=== PATIENT | female | born 1935 | race Caucasian/White ===

== ENCOUNTER → 2017-03-07 | Outpatient (CLI) | payer MEDICARE, MEDICAID ==
[~2017-03-07] MED LIST: PANT40TA2 PO; PROP1TAB29 PO
[2017-03-07 15:08] LABS: CALCIUM LEVEL 8.7 MG/DL (8.8-10.2); CREATININE FOR GFR 1.71 MG/DL (0.55-1.02); GLOMERULAR FILTRATION RATE 30.4 (>32); POTASSIUM SERUM 4.6 MEQ/L (3.5-5.1)
--- NOTE | 2017-03-10 00:39 | ECGEPIP ---
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
== END ==
LOC: M LAB 13:43
PROVIDERS: ATTEND Ophthalmology
DX: H25.12 Age-related nuclear cataract, left eye (principal)

== ENCOUNTER → 2017-03-20 | Day surgery (SDC) | payer MEDICARE, MEDICAID ==
[~2017-03-20] VITALS: Ht 152.4 cm; Wt 78.5 kg
[~2017-03-20] MED LIST changes: +CYCLOPENTOLATE 2% OPHTH SOLN 2ML BTL As Ordered ONE; +MIDAZOLAM INJ 2 MG/2 ML VIAL (J2250) As Ordered ONE; +fentaNYL 100 MCG/2 ML INJECTION (J3010) As Ordered ONE
[2017-03-20] MEDS: TROPICAMIDE 1% OPHTH SOLN 2ML OS ONE (07:00)
[2017-03-20] MEDS: LR 500 ML IV SCH (09:00)
[2017-03-20] MEDS: PROPARACAINE 0.5% OPHTH SOL 15ML OS ONE (09:13)
[2017-03-20] MEDS: PHENYLEPHRINE 2.5% OPHTH SOL 2ML OS ONE (09:14)
[2017-03-20] MEDS: OFLOXACIN 0.3 % (OCUFLOX) OPTH SOL 5ML OS ONE (09:14)
[2017-03-20] MEDS: CYCLOPENTOLATE 2% OPHTH SOLN 2ML BTL OS SCH (10:00)
[2017-03-20] MEDS: LIDOCAINE 4% INJ 5 ML AMP As Ordered ONE (10:16)
[2017-03-20] MEDS: CEFUROXIME 1MG/0.1ML INTRACAMERAL INJ As Ordered ONE ×2 (10:16→10:30)
[2017-03-20] MEDS: DUOVISC (0.50ML VISCOAT/0.55ML PROVISC) OPHTH KIT As Ordered ONE ×3 (10:20→10:30)
[2017-03-20] MEDS: POVIDONE-IODINE 5% OPHTH PREP SOL 30ML As Ordered ONE (10:29)
[2017-03-20] MEDS: BALANCED SALT IRRIGATION SOLUTION 500ML BAG (FOR OR EYE MACHINE) As Ordered ONE (10:29)
[2017-03-20] MEDS: LIDOCAINE 0.75%/EPINEPHRINE 0.025% IN BSS 1ML SYR INTRACAMERAL (OR ONLY) As Ordered ONE (10:30)
[2017-03-20] MEDS: ACETYLCHOLINE OPHTH SOLN 1% 2ML (MIOCHOL-E) As Ordered ONE (10:30)
[2017-03-20 11:15] VITALS: BP 132/86
--- NOTE | 2017-03-21 23:28 | RO ---
DATE OF PROCEDURE: 03/20/2017 PREOPERATIVE DIAGNOSES: 1. Visually significant nuclear sclerotic cataract of the left eye. 2. Glaucoma. 3. Small pupil. POSTOPERATIVE DIAGNOSES: 1. Visually significant nuclear sclerotic cataract of the left eye. 2. Glaucoma. 3. Small pupil. PROCEDURE: Complex cataract extraction with placement of intraocular lens implant AU00T0 22.0 D, with use of Malyugin ring, and endoscopic cyclophotocoagulation of the left eye. SURGEON: Can Deutsch DO POWER SYSTEM DISPATCHER: ANESTHESIA: Local with monitored anesthesia care (MAC). COMPLICATIONS: None. POSTOPERATIVE CONDITION: Stable. INDICATION FOR SURGERY: Blurred vision left eye affecting patient's activities of daily living. DESCRIPTION OF PROCEDURE: The patient was seen in the preoperative area and properly identified. The correct operative eye was identified and marked. Attention was turned to that eye. The patient received topical antibiotics in the preoperative area. The patient then received topical dilating drops consisting of Tropicamide and Phenylephrine. The patient was then transferred to the operating room. The correct side was re-identified. The patient received topical anesthetics and antibiotics on the surface of the eye. The eye was prepped and draped in a sterile fashion. The upper and lower eyelids were isolated with Tegaderm tape, and the lids were held open with an adjustable speculum. Using a sideport blade, a paracentesis incision was made. Intraocular preservative-free lidocaine was then injected into the anterior chamber. Viscoelastic was then injected into the anterior chamber through the paracentesis. Using a 2.6 mm sharp-tipped keratome, the anterior chamber was entered via a temporal clear corneal incision. A 7.0mm Malyugin ring was placed. A continuous curvilinear capsulorrhexis was created with the aid of a 26g cystotome and utrata forceps. Hydrodissection was performed with balanced salt solution (BSS) on a blunt cannula until the nucleus was freely mobile. The crystalline lens was phacoemulsified and aspirated. Additional cohesive viscoelastic was placed into the capsular bag to deepen it. A AU00T0, 22.0 D lens was placed into the capsular bag and confirmed by visualizing the continuous curvilinear capsulorrhexis. The Malyugin ring was removed from the eye. Additional viscoelastic was placed into the ciliary sulcus. The endoscopic cyclophotocoagulation probe was placed into the eye and the ciliary processes were visualized. ECP was applied to 270 degrees on a continuous mode, then probe was withdrawn. Additional irrigation and aspiration was used to remove cortical material and remaining viscoelastic. The clear corneal incision was hydrated with BSS on a blunt cannula. The lens was well positioned. The incisions were then tested for leaks and found to be negative. The eye was then palpated for appropriate pressure and adjusted accordingly with BSS. The eyelid speculum was carefully removed. A shield was placed over the eye. The patient tolerated the procedure well and was discharged to the recovery unit in a stable condition. [place]IL[place]
== END | disposition home or self-care (01) ==
LOC: M SDC 08:41
PROVIDERS: ATTEND Ophthalmology
DX: H25.12 Age-related nuclear cataract, left eye (principal); H57.03 Miosis; H40.9 Unspecified glaucoma; I10 Essential (primary) hypertension; K21.9 Gastro-esophageal reflux disease without esophagitis; M40.209 Unspecified kyphosis, site unspecified; M12.9 Arthropathy, unspecified; Z79.899 Other long term (current) drug therapy; Z78.0 Asymptomatic menopausal state
CPT/HCPCS: 66982; J2250; J3010; V2632

== ENCOUNTER 2017-05-01 11:27 | Day surgery (SDC) | payer MEDICARE, MEDICAID ==
[~2017-05-01 11:27] MED LIST changes: +ACETYLCHOLINE OPHTH SOLN 1% 2ML (MIOCHOL-E) As Ordered ONE; +BALANCED SALT IRRIGATION SOLUTION 500ML BAG (FOR OR EYE MACHINE) As Ordered ONE; +CEFUROXIME 1MG/0.1ML INTRACAMERAL INJ As Ordered ONE; -CYCLOPENTOLATE 2% OPHTH SOLN 2ML BTL As Ordered ONE; +DUOVISC (0.50ML VISCOAT/0.55ML PROVISC) OPHTH KIT As Ordered ONE; +LIDOCAINE 0.75%/EPINEPHRINE 0.025% IN BSS 1ML SYR INTRACAMERAL (OR ONLY) As Ordered ONE; +OFLOXACIN 0.3 % (OCUFLOX) OPTH SOL 5ML OD ONE; +PHENYLEPHRINE 2.5% OPHTH SOL 2ML OD ONE; +POVIDONE-IODINE 5% OPHTH PREP SOL 30ML As Ordered ONE; +PROPARACAINE 0.5% OPHTH SOL 15ML OD ONE; +TROPICAMIDE 1% OPHTH SOLN 2ML OD ONE
[2017-05-01] MEDS ORDERED: LIDOCAINE 1% SDV 5 ML VIAL SQ ONE (12:00)
[2017-05-01] MEDS ORDERED: NS 1,000 ML IV ONE (12:00)
[2017-05-01] MEDS ORDERED: LIDOCAINE 4% INJ 5 ML AMP OD ONE (12:15)
[2017-05-01] MEDS ORDERED: CYCLOPENTOLATE 2% OPHTH SOLN 2ML BTL As Ordered ONE (12:55)
[2017-05-01] MEDS: CYCLOPENTOLATE 1% OPHTH SOLN 2 ML BTL OD SCH ×3 (13:05→13:07)
[2017-05-01] MEDS ORDERED: DUOVISC (0.50ML VISCOAT/0.55ML PROVISC) OPHTH KIT As Ordered ONE (14:27)
[2017-05-01 15:00] VITALS: BP 152/69
--- NOTE | 2017-05-04 08:49 | RO ---
DATE OF PROCEDURE: 05/01/2017 PREOPERATIVE DIAGNOSES: 1. Visually significant nuclear sclerotic cataract right eye. 2. Glaucoma, right eye POSTOPERATIVE DIAGNOSES: 2. Visually significant nuclear sclerotic cataract right eye. 2. Glaucoma, right eye PROCEDURES: 1. Extracapsular cataract removal and insertion of intraocular lens implant, right eye, AU00T0, 22.0 diopters. 2. Use of endoscopic cyclophotocoagulation right eye, 0.25 power, continuous mode, 20 spots, 270 degrees, right eye. SURGEON: Can Deutsch DO CORE SETTER: ANESTHESIA: Local with monitored anesthesia care (MAC). COMPLICATIONS: None. POSTOPERATIVE CONDITION: Stable. INDICATION FOR SURGERY: Blurred vision right eye affecting patient's activities of daily living. DESCRIPTION OF PROCEDURE: The patient was seen in the preoperative area and properly identified. The correct operative eye was identified and marked. Attention was turned to that eye. The patient received topical antibiotics in the preoperative area. The patient then received topical dilating drops consisting of Tropicamide and Phenylephrine. The patient was then transferred to the operating room. The correct side was re-identified. The patient received topical anesthetics and antibiotics on the surface of the eye. The eye was prepped and draped in a sterile fashion. The upper and lower eyelids were isolated with Tegaderm tape, and the lids were held open with an adjustable speculum. Using a sideport blade, a paracentesis incision was made. Intraocular preservative-free lidocaine was then injected into the anterior chamber. Viscoelastic was then injected into the anterior chamber through the paracentesis. Using a 2.6 mm sharp-tipped keratome, the anterior chamber was entered via a temporal clear corneal incision. A continuous curvilinear capsulorrhexis was created with the aid of a 26g cystotome and utrata forceps. Hydrodissection was performed with balanced salt solution (BSS) on a blunt cannula until the nucleus was freely mobile. The crystalline lens was phacoemulsified and aspirated. Additional cohesive viscoelastic was placed into the capsular bag to deepen it. An AU00T0, 22.0 D lens was placed into the capsular bag and confirmed by visualizing the continuous curvilinear capsulorrhexis. Additional viscoelastic was placed into the ciliary sulcus to deepen it. The laser probe was placed into the anterior chamber and the ciliary processes were visualized. The laser was applied and the probe removed from the eye. Additional irrigation and aspiration was used to remove cortical material and remaining viscoelastic. The clear corneal incision was hydrated with BSS on a blunt cannula. The lens was well positioned. The incisions were then tested for leaks and found to be negative. The eye was then palpated for appropriate pressure and adjusted accordingly with BSS. Resure sealant was placed over the temporal clear corneal incision to seal it. The eyelid speculum was carefully removed. A shield was placed over the eye. The patient tolerated the procedure well and was discharged to the recovery unit in a stable condition. [place]
== END 2017-05-01 15:39 | disposition home or self-care (01) ==
LOC: M SDC 11:27
PROVIDERS: ATTEND Ophthalmology
DX: H25.11 Age-related nuclear cataract, right eye (principal); H40.811 Glaucoma with increased episcleral venous pressure, right eye; I10 Essential (primary) hypertension; K21.9 Gastro-esophageal reflux disease without esophagitis; Z79.899 Other long term (current) drug therapy; M40.209 Unspecified kyphosis, site unspecified
CPT/HCPCS: 66711; 66984; J2250; J3010; V2632

== ENCOUNTER → 2019-09-24 | Outpatient (REF) | payer MEDICARE, OTHER, MEDICAID ==
[~2019-09-24] MED LIST changes: -ACETYLCHOLINE OPHTH SOLN 1% 2ML (MIOCHOL-E) As Ordered ONE; -BALANCED SALT IRRIGATION SOLUTION 500ML BAG (FOR OR EYE MACHINE) As Ordered ONE; -CEFUROXIME 1MG/0.1ML INTRACAMERAL INJ As Ordered ONE; -DUOVISC (0.50ML VISCOAT/0.55ML PROVISC) OPHTH KIT As Ordered ONE; -LIDOCAINE 0.75%/EPINEPHRINE 0.025% IN BSS 1ML SYR INTRACAMERAL (OR ONLY) As Ordered ONE; -MIDAZOLAM INJ 2 MG/2 ML VIAL (J2250) As Ordered ONE; -OFLOXACIN 0.3 % (OCUFLOX) OPTH SOL 5ML OD ONE; -PANT40TA2 PO; +PANT40TA3 PO; -PHENYLEPHRINE 2.5% OPHTH SOL 2ML OD ONE; -POVIDONE-IODINE 5% OPHTH PREP SOL 30ML As Ordered ONE; -PROP1TAB29 PO; +PROP20TA72 PO; -PROPARACAINE 0.5% OPHTH SOL 15ML OD ONE; -TROPICAMIDE 1% OPHTH SOLN 2ML OD ONE; -fentaNYL 100 MCG/2 ML INJECTION (J3010) As Ordered ONE
[2019-09-24 15:58] LABS: CREATININE FOR GFR 1.76 MG/DL (0.55-1.30); GLOMERULAR FILTRATION RATE 29.3 (>32)
== END ==
LOC: M LABDRAW1 14:15
PROVIDERS: ATTEND Physician Assistant
DX: M17.11 Unilateral primary osteoarthritis, right knee (principal)

== ENCOUNTER 2021-02-01 16:51 | Emergency (ER) | payer MEDICARE, MEDICAID ==
[~2021-02-01 16:51] MED LIST changes: +PANT40TA29 PO; -PANT40TA3 PO
--- NOTE | 2021-02-01 17:30 | REP ---
INDICATION: CHEST PAIN. COMPARISON: None. FINDINGS: The technique utilized in obtaining the radiograph has magnified the cardiac silhouette and accentuated the interstitial markings. There is mild cardiomegaly accentuated by technique. There is evidence of interstitial fibrotic change. There are no patchy opacities or pleural effusion. The osseous structures are within normal limits. IMPRESSION: Within normal limits for technique. <Electronically signed by Len Renner > 02/01/21 0163
[2021-02-01 17:37] LABS: BASO % 0.9 % (0.0-1.0); EOS # 0.1 10^3/uL (0.0-0.5); EOS % 2.4 % (0.0-3.0); HEMOGLOBIN 11.2 g/dl (12.0-15.5); LYMPH # 1.3 10^3/uL (1.5-5.0); LYMPH % 28.2 % (24.0-44.0); MEAN CORPUSCULAR HEMOGLOBIN 29.4 pg (27.0-33.0); MEAN CORPUSCULAR HGB CONC 31.1 g/dl (32.0-36.5); MEAN CORPUSCULAR VOLUME 94.5 fl (80.0-96.0); MONO # 0.8 10^3/uL (0.0-0.8); MONO % 16.5 % (2.0-8.0); NEUTROPHILS # 2.4 10^3/uL (1.5-8.5); NEUTROPHILS % 51.8 % (36.0-66.0); PLATELET COUNT, AUTOMATED 182 10^3/uL (150-450); RED BLOOD COUNT 3.81 10^6/uL (4.00-5.40); WHITE BLOOD COUNT 4.7 10^3/uL (4.0-10.0)
[2021-02-01 17:58] LABS: CALCIUM LEVEL 8.7 MG/DL (8.8-10.2); CREATININE FOR GFR 1.42 MG/DL (0.55-1.30); GLOMERULAR FILTRATION RATE 37.3 (>32); POTASSIUM SERUM 4.7 MEQ/L (3.5-5.1)
[2021-02-01 18:04] LABS: CK-MB VALUE MASS 1.2 NG/ML (<3.6); CPK CREATINE PHOSPHOKINASE 60 U/L (26-192); TROPONIN I < 0.02 NG/ML (< 0.10)
[2021-02-01 22:48] LABS: CK-MB VALUE MASS < 1.0 NG/ML (<3.6); CPK CREATINE PHOSPHOKINASE 55 U/L (26-192); MB/CK RELATIVE INDEX 1.82 (< OR =4); TROPONIN I < 0.02 NG/ML (< 0.10)
[2021-02-01 23:08] VITALS: BP 185/89
--- NOTE | 2021-02-02 20:23 | ECGEPIP ---
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
--- NOTE | 2021-02-02 20:29 | ECGEPIP ---
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
== END 2021-02-02 00:15 | disposition home or self-care (01) ==
LOC: M ED 16:51 → EDBD 16:51 → M ED 02-02 00:15
DX: R07.9 Chest pain, unspecified (principal); N18.30 Chronic kidney disease, stage 3 unspecified; I10 Essential (primary) hypertension; K21.9 Gastro-esophageal reflux disease without esophagitis; Z79.899 Other long term (current) drug therapy

== ENCOUNTER 2021-09-28 10:45 | Observation (INO) | payer MEDICARE, MEDICAID ==
[~2021-09-28] VITALS: Ht 152.4 cm; Wt 56.4 kg
[2021-09-28] MEDS ORDERED: ARIP1TAB4 PO (11:43)
[2021-09-28] MEDS ORDERED: LATA0.0015 OU (11:43)
[2021-09-28] MEDS ORDERED: COSO1SOL3 OU (11:43)
[2021-09-28] MEDS ORDERED: SUCR1ORA2 PO (11:43)
[2021-09-28] MEDS ORDERED: DICL1GEL3 TOP (11:43)
[2021-09-28] MEDS ORDERED: HYDR-3911 PO (11:43)
[2021-09-28] MEDS ORDERED: ACET1TAB55 PO (11:43)
[2021-09-28] MEDS ORDERED: ONDANSETRON 4MG/2ML VIAL IV ONE (12:15)
[2021-09-28] MEDS ORDERED: MORPHINE 2 MG/ML 1ML VIAL (J2270) IV ONE (12:15)
[2021-09-28] MEDS ORDERED: GASTROGRAFIN SOLUTION 30ML (Q9963) As Ordered ONE (13:00)
[2021-09-28 13:07] LABS: BASO % 0.5 % (0.0-1.0); EOS # 0.1 10^3/uL (0.0-0.5); EOS % 1.4 % (0.0-3.0); HEMATOCRIT 37.9 % (36.0-47.0); LYMPH % 17.5 % (24.0-44.0); MEAN CORPUSCULAR HEMOGLOBIN 29.3 pg (27.0-33.0); MEAN CORPUSCULAR HGB CONC 31.7 g/dl (32.0-36.5); MEAN CORPUSCULAR VOLUME 92.4 fl (80.0-96.0); MONO # 0.6 10^3/uL (0.0-0.8); MONO % 10.3 % (2.0-8.0); NEUTROPHILS % 69.9 % (36.0-66.0); PLATELET COUNT, AUTOMATED 186 10^3/uL (150-450); WHITE BLOOD COUNT 5.7 10^3/uL (4.0-10.0)
[2021-09-28] MEDS: GASTROGRAFIN SOLUTION 30ML PO SCH ×2 (13:21→13:50)
[2021-09-28 13:40] LABS: ALBUMIN 3.6 GM/DL (3.2-5.2); ALT/SGPT 18 U/L (12-78); BILIRUBIN,DIRECT < 0.1 MG/DL (0.0-0.2); BILIRUBIN,TOTAL 0.4 MG/DL (0.2-1.0); BLOOD UREA NITROGEN 28 MG/DL (7-18); CALCIUM LEVEL 9.1 MG/DL (8.8-10.2); CARBON DIOXIDE LEVEL 24 MEQ/L (21-32); CHLORIDE LEVEL 110 MEQ/L (98-107); CREATININE FOR GFR 1.17 MG/DL (0.55-1.30); GLOMERULAR FILTRATION RATE 46.7 (>32); GLUCOSE, FASTING 87 MG/DL (70-100); LIPASE 98 U/L (73-393); POTASSIUM SERUM 5.2 MEQ/L (3.5-5.1); SODIUM LEVEL 139 MEQ/L (136-145); TOTAL PROTEIN 7.1 GM/DL (6.4-8.2)
[2021-09-28] MEDS ORDERED: ISOVUE-370 76% 100ML VIAL As Ordered ONE (14:37)
[2021-09-28] MEDS ORDERED: ONDANSETRON 4MG/2ML VIAL IV PRN (16:00)
[2021-09-28] MEDS ORDERED: HOME MED LIST COMPLETE! XX SCH (17:10)
[2021-09-28] MEDS: NS 1,000 ML IV SCH (17:14)
[2021-09-28] MEDS: **hydrALAZINE HCL** 25 MG TAB PO SCH (19:30)
[2021-09-28 21:14] VITALS: BP 154/76
[2021-09-28] MEDS: SUCRALFATE SUSP 1GM/10ML UD PO SCH (21:44)
[2021-09-28] MEDS: ACETAMINOPHEN TAB 650MG DOSE (2X325MG) PO SCH (21:44)
[2021-09-28] MEDS: PROPRANOLOL 20 MG TAB PO SCH (21:51)
[2021-09-29] MEDS: **hydrALAZINE HCL** 25 MG TAB PO SCH ×5 (00:01→23:47)
[2021-09-29] MEDS: COSOPT OCUMETER PLUS 10ML (DORZOLAMIDE/TIMOLOL) OU SCH ×3 (00:04→20:45)
[2021-09-29] MEDS: NS 1,000 ML IV SCH (05:16)
[2021-09-29 06:00] VITALS: BP 178/83
[2021-09-29] MEDS: PROPRANOLOL 20 MG TAB PO SCH ×2 (09:25→20:47)
[2021-09-29] MEDS: SUCRALFATE SUSP 1GM/10ML UD PO SCH ×2 (09:26→20:50)
[2021-09-29] MEDS: ACETAMINOPHEN TAB 650MG DOSE (2X325MG) PO SCH ×2 (09:26→20:50)
[2021-09-29] MEDS: PANTOPRAZOLE 40MG VIAL (C9113 PER 1) IV SCH (09:26)
[2021-09-29 11:45] VITALS: BP 155/71
[2021-09-29 14:15] VITALS: BP 156/70
[2021-09-29] MEDS: LATANOPROST 0.005% OPHTH SOLN 2.5 ML OU SCH (20:54)
[2021-09-29 22:00] VITALS: BP 157/78
[2021-09-30] MEDS: **hydrALAZINE HCL** 25 MG TAB PO SCH ×4 (05:52→23:33)
[2021-09-30 06:00] VITALS: BP 184/81
[2021-09-30] MEDS: ACETAMINOPHEN TAB 650MG DOSE (2X325MG) PO SCH ×2 (08:41→20:09)
[2021-09-30] MEDS: SUCRALFATE SUSP 1GM/10ML UD PO SCH ×2 (08:41→20:05)
[2021-09-30] MEDS: PANTOPRAZOLE 40MG VIAL (C9113 PER 1) IV SCH (08:41)
[2021-09-30] MEDS: COSOPT OCUMETER PLUS 10ML (DORZOLAMIDE/TIMOLOL) OU SCH ×2 (08:42→20:01)
[2021-09-30] MEDS: PROPRANOLOL 20 MG TAB PO SCH ×2 (08:47→20:02)
[2021-09-30 13:27] LABS: BASO % 0.4 % (0.0-1.0); EOS # 0.1 10^3/uL (0.0-0.5); EOS % 2.3 % (0.0-3.0); HEMATOCRIT 39.3 % (36.0-47.0); HEMOGLOBIN 12.4 g/dl (12.0-15.5); LYMPH % 17.4 % (24.0-44.0); MEAN CORPUSCULAR HGB CONC 31.6 g/dl (32.0-36.5); MONO # 0.6 10^3/uL (0.0-0.8); MONO % 10.7 % (2.0-8.0); NEUTROPHILS # 3.9 10^3/uL (1.5-8.5); NEUTROPHILS % 68.8 % (36.0-66.0); PLATELET COUNT, AUTOMATED 197 10^3/uL (150-450); RED BLOOD COUNT 4.27 10^6/uL (4.00-5.40); WHITE BLOOD COUNT 5.6 10^3/uL (4.0-10.0)
[2021-09-30 13:48] LABS: CALCIUM LEVEL 9.1 MG/DL (8.8-10.2); CREATININE FOR GFR 1.28 MG/DL (0.55-1.30); GLOMERULAR FILTRATION RATE 42.1 (>32); POTASSIUM SERUM 4.4 MEQ/L (3.5-5.1)
[2021-09-30 14:00] VITALS: BP 171/87
[2021-09-30] MEDS: RAMELTEON 8 MG TAB (ROZEREM) PO SCH (20:03)
[2021-09-30] MEDS: LATANOPROST 0.005% OPHTH SOLN 2.5 ML OU SCH (20:07)
[2021-09-30 22:00] VITALS: BP 152/75
[2021-10-01 06:00] VITALS: BP 155/75
[2021-10-01] MEDS: **hydrALAZINE HCL** 25 MG TAB PO SCH ×4 (06:00→23:11)
[2021-10-01] MEDS: ACETAMINOPHEN TAB 650MG DOSE (2X325MG) PO SCH ×2 (09:00→21:07)
[2021-10-01] MEDS: PANTOPRAZOLE 40MG VIAL (C9113 PER 1) IV SCH (09:41)
[2021-10-01] MEDS: SUCRALFATE SUSP 1GM/10ML UD PO SCH ×2 (09:41→21:05)
[2021-10-01] MEDS: PROPRANOLOL 20 MG TAB PO SCH ×2 (09:43→21:10)
[2021-10-01] MEDS: COSOPT OCUMETER PLUS 10ML (DORZOLAMIDE/TIMOLOL) OU SCH ×2 (09:46→21:06)
[2021-10-01 14:00] VITALS: BP 162/81
[2021-10-01] MEDS: LATANOPROST 0.005% OPHTH SOLN 2.5 ML OU SCH (21:06)
[2021-10-01] MEDS: RAMELTEON 8 MG TAB (ROZEREM) PO SCH (21:07)
[2021-10-02] MEDS: **hydrALAZINE HCL** 25 MG TAB PO SCH ×2 (05:07→12:00)
[2021-10-02 06:00] VITALS: BP 139/85
[2021-10-02] MEDS: SUCRALFATE SUSP 1GM/10ML UD PO SCH (09:57)
[2021-10-02 09:58] VITALS: BP 151/81
[2021-10-02] MEDS: COSOPT OCUMETER PLUS 10ML (DORZOLAMIDE/TIMOLOL) OU SCH (09:58)
[2021-10-02] MEDS: PROPRANOLOL 20 MG TAB PO SCH (09:58)
[2021-10-02] MEDS: ACETAMINOPHEN TAB 650MG DOSE (2X325MG) PO SCH (09:58)
[2021-10-02] MEDS: PANTOPRAZOLE 40MG VIAL (C9113 PER 1) IV SCH (09:58)
== END 2021-10-02 12:20 | disposition other institution (70) ==
LOC: M ED 10:45 → M ED INP 10:46 → ENRESERV 19:24 → M MSPAV 21:45
PROVIDERS: ADMIT Internal Medicine Nephrology; ATTEND Internal Medicine Nephrology
DX: G92.8 Other toxic encephalopathy (principal); T43.595A Adverse effect of other antipsychotics and neuroleptics, initial encounter; I10 Essential (primary) hypertension; H40.9 Unspecified glaucoma; K21.9 Gastro-esophageal reflux disease without esophagitis; F41.9 Anxiety disorder, unspecified; F32.9 Major depressive disorder, single episode, unspecified; K44.9 Diaphragmatic hernia without obstruction or gangrene; M76.02 Gluteal tendinitis, left hip; Z79.899 Other long term (current) drug therapy; Z88.8 Allergy status to other drugs, medicaments and biological substances
CPT/HCPCS: 36415; 70450; 74177; 80048; 80076; 83690; 85025; 87798; 93005; 93041; 94760; 96361; 96374; 96375; 96376; 97116; 97161; 97530; 99285; C9113; G0378; J2405; Q9967